=== PATIENT | female | born 2000 | race Caucasian/White ===

== ENCOUNTER 2021-07-05 22:14 | Inpatient (IN) | payer SELFPAY ==
[~2021-07-05] VITALS: Ht 160 cm; Wt 79.8 kg
[2021-07-05] MEDS ORDERED: LIDOCAINE HCL 1% 20ML VIAL (Pyxis) INJ INFIL SCH (23:30)
[2021-07-05] MEDS ORDERED: DEXT 5%/LR + PITOCIN 20UNITS/L 1,000 ML IV SCH (23:30)
[2021-07-05] MEDS ORDERED: MISOPROSTOL 100MCG TABLET VG SCH (23:30)
[2021-07-05] MEDS ORDERED: AMPICILLIN 2GM in NS 100ML 100 ML IV SCH (23:30)
[2021-07-05] MEDS ORDERED: METHYLERGONOVINE MALEATE 0.2 MG/ML IM PRN (23:30)
[2021-07-05] MEDS ORDERED: CARBOPROST TROMETHAMINE 250 MCG/ML AMPUL IM PRN (23:30)
[2021-07-05] MEDS ORDERED: BUTORPHANOL TARTRATE 2 MG/ML VIAL IV PRN (23:30)
[2021-07-05] MEDS ORDERED: NALOXONE HCL 0.4 MG/ML 1ML VIAL IM PRN (23:30)
[2021-07-06] MEDS ORDERED: PREN-182 PO (00:29)
[2021-07-06] MEDS ORDERED: METF-873 PO (00:29)
[2021-07-06] MEDS: LACTATED RINGERS 1,000 ML IV SCH ×2 (00:40→02:16)
[2021-07-06 00:52] LABS: BASOPHILS % 0.2 % (0.0-2.0); EOSINOPHILS % 0.8 % (0.0-5.0); HEMATOCRIT. 38.1 % (36.0-48.0); HEMOGLOBIN. 12.7 g/dL (12.0-16.0); MEAN CORPUSCULAR HEMOGLOBIN 28.6 pg (28.0-32.0); MEAN CORPUSCULAR VOLUME 85.9 fL (81.0-99.0); MEAN PLATELET VOLUME 9.1 fl (7.4-10.4); MONOCYTES % 7.5 % (2.0-8.0); NEUTROPHILS % 73.5 % (40.0-76.0); PLATELET 260 x1000/uL (130-400); RED BLOOD CELL COUNT 4.44 mill/uL (4.2-5.4); RED CELL DISTRIBUTION WIDTH 15.3 % (11.6-14.6)
[2021-07-06 01:04] LABS: CLARITY URINE CLOUDY (CLEAR); COLOR URINE YELLOW (YELLOW); KETONES URINE 1+ (NEGATIVE); LEUKOCYTE ESTERASE URINE NEGATIVE (NEGATIVE); NITRITE URINE NEGATIVE (NEGATIVE); OCCULT BLOOD URINE 2+ (NEGATIVE); PH URINE 6.5 (4.5-8.0); PROTEIN URINE 4+ (NEGATIVE); SPECIFIC GRAVITY URINE 1.018 (1.005-1.030); UROBILINOGEN URINE 0.2 E.U./dL (0.2-1.0)
[2021-07-06 01:24] LABS: *AMPHETAMINES SCREEN URINE NEGATIVE (NEGATIVE); *BARBITURATES SCREEN URINE NEGATIVE (NEGATIVE); *BENZODIAZEPINES SCREEN URINE NEGATIVE (NEGATIVE); *COCAINE SCREEN URINE NEGATIVE (NEGATIVE); METHADONE URINE SCREEN NEGATIVE (NEGATIVE); OPIATES URINE SCREEN NEGATIVE (NEGATIVE)
[2021-07-06 01:24] LABS: HEPATITIS B SURFACE ANTIGEN NEGATIVE
[2021-07-06 01:25] LABS: CANNABINOID URINE SCREEN NEGATIVE (NEGATIVE); PHENCYCLIDINE URINE SCREEN NEGATIVE (NEGATIVE)
[2021-07-06 01:53] LABS: INR 0.9; PARTIAL THROMBOPLASTIN TIME 25.9 sec (23.4-31.0); PROTHROMBIN TIME 9.8 sec (9.6-11.0)
[2021-07-06 02:08] LABS: CHLORIDE 108 mEq/L (98-107)
[2021-07-06] MEDS ORDERED: IBUPROFEN 400MG TABLET PO PRN (06:00)
[2021-07-06] MEDS ORDERED: IBUPROFEN 800MG TABLET PO PRN (06:00)
[2021-07-06] MEDS ORDERED: RHO(D) IMMUNE GLOBULIN 300 MCG/SYR IM PRN (06:00)
[2021-07-06] MEDS ORDERED: AMPICILLIN 1,000 MG in SODIUM CHLORIDE 0.9% 50 ML IV SCH (06:00)
[2021-07-06] MEDS ORDERED: BENZOCAINE/LANOLIN/ALOE VERA SPRAY TOP PRN (06:00)
[2021-07-06 07:20] VITALS: BP 127/76
[2021-07-06 08:00] VITALS: BP 125/71
[2021-07-06] MEDS: PRENATAL VIT/FE FUMARATE/FA TABLET PO SCH (08:55)
[2021-07-06 09:00] VITALS: BP 124/82
[2021-07-06 15:23] VITALS: BP 123/79
[2021-07-06] MEDS ORDERED: INFLUENZA VACCINE 05/PF 0.5 ML SYRINGE IM ONE (15:45)
[2021-07-06 19:30] VITALS: BP 109/64
[2021-07-06] MEDS: DOCUSATE SODIUM 100MG CAPSULE PO SCH (21:26)
[2021-07-07 04:00] VITALS: BP 119/78
[2021-07-07 07:08] LABS: BASOPHILS % 0.4 % (0.0-2.0); EOSINOPHILS % 1.7 % (0.0-5.0); HEMATOCRIT. 28.2 % (36.0-48.0); HEMOGLOBIN. 9.6 g/dL (12.0-16.0); LYMPHOCYTES % 20.5 % (20.0-50.0); MEAN CORPUSCULAR HEMOGLOBIN 29.2 pg (28.0-32.0); MEAN CORPUSCULAR VOLUME 85.3 fL (81.0-99.0); MEAN PLATELET VOLUME 8.4 fl (7.4-10.4); MONOCYTES % 6.1 % (2.0-8.0); NEUTROPHILS % 71.3 % (40.0-76.0); PLATELET 189 x1000/uL (130-400); RED CELL DISTRIBUTION WIDTH 15.4 % (11.6-14.6)
[2021-07-07] MEDS: FERROUS SULFATE 325MG TABLET PO SCH ×2 (07:30→12:59)
[2021-07-07] MEDS: PRENATAL VIT/FE FUMARATE/FA TABLET PO SCH (08:23)
[2021-07-07 08:41] VITALS: BP 109/67
[2021-07-07 15:39] VITALS: BP 110/71
[2021-07-07 19:30] VITALS: BP 127/85
[2021-07-07] MEDS: DOCUSATE SODIUM 100MG CAPSULE PO SCH (20:05)
[2021-07-08 04:00] VITALS: BP 110/59
[2021-07-08 07:35] VITALS: BP 123/72
[2021-07-08] MEDS: PRENATAL VIT/FE FUMARATE/FA TABLET PO SCH (08:09)
[2021-07-08] MEDS: FERROUS SULFATE 325MG TABLET PO SCH (08:09)
[2021-07-08] MEDS ORDERED: IBUP-2030 PO (08:11)
[2021-07-08] MEDS ORDERED: FERR-63 PO (08:11)
[2021-07-08] MEDS ORDERED: BISACODYL 10MG SUPP PR PRN (08:15)
== END 2021-07-08 12:08 | disposition home or self-care (01) | DRG 560 ==
LOC: OBSVTOIN 22:14 → 8EST NSY 22:14 → 8 EST LDRP 22:50 → 8EST 07-06 08:20
PROVIDERS: ADMIT Obstetrics & Gynecology; ATTEND Obstetrics & Gynecology
PROC: 10E0XZZ Delivery of Products of Conception, External Approach (ICD-10-PCS; principal; 2021-07-06)
PROC: 0W8NXZZ Division of Female Perineum, External Approach (ICD-10-PCS; 2021-07-06)
DX: O69.81X0 Labor and delivery complicated by cord around neck, without compression, not applicable or unspecified (principal); Z37.0 Single live birth; O24.429 Gestational diabetes mellitus in childbirth, unspecified control; O99.02 Anemia complicating childbirth; Z3A.40 40 weeks gestation of pregnancy; Z20.822 Contact with and (suspected) exposure to COVID-19; O77.0 Labor and delivery complicated by meconium in amniotic fluid; Z23 Encounter for immunization
CPT/HCPCS: 36415; 76805; 76818; 80053; 80305; 81003; 82947; 82962; 84550; 85025; 85379; 85384; 86592; 86703; 86762; 86850; 86900; 87340; 87426; 90686; 99281; J0290; J0595; J2590; J3490